=== PATIENT | female | born 1980 | race Caucasian/White ===

== ENCOUNTER → 2021-07-24 16:31 | Outpatient (CLI) | payer BC, SELFPAY | PROVIDERS: Visit Provider Nurse Practitioner | DX: U07.1 COVID-19 (principal) | CPT/HCPCS: C9803; U0003; U0005 ==

== ENCOUNTER 2023-11-20 18:00 | Outpatient (CLI) | payer BC, SELFPAY ==
[2023-11-20 12:51] LABS: Microscopic, Urine URINE MICROSCOPIC (MICROSCOPIC)
[2023-11-20 13:07] LABS: Basophils % 0.6 % (0.1-2.0); Eosinophils # 0.1 K/mm3 (0.0-0.4); Eosinophils % 1.4 % (0.1-12.0); Hematocrit 46.4 % (37.0-47.0); Lymphocytes # 1.4 K/mm3 (0.7-4.5); Lymphocytes % 29.2 % (10-50); Mean Corpuscular HGB Conc 32.3 g/dL (31.8-35.4); Mean Corpuscular Hemoglobin 32.7 pg (27.0-31.2); Mean Corpuscular Volume 101.2 fl (81-99); Mean Platelet Volume 8.1 fl (7.4-10.4); Monocytes # 0.3 K/mm3 (0.1-1.0); Monocytes % 6.2 % (1.7-9.3); Neutrophils # 2.9 K/mm3 (1.8-7.8); Neutrophils % 62.5 % (37.0-80.0); Platelet Count 242 K/mm3 (142-424); Red Blood Count 4.58 M/mm3 (4.20-5.40); Red Cell Distribution Width 13.1 % (11.5-17.5); White Blood Count 4.7 K/mm3 (4.8-10.8)
[2023-11-20 14:13] LABS: Free T4 (Free Thyroxine) 1.25 ng/dl (0.78-2.19)
[2023-11-20 14:14] LABS: 25-OH Vitamin D, Total 55.8 ng/mL (30-100)
[2023-11-20 14:37] LABS: Hemoglobin A1C 4.9 % (4.0-6.0)
[2023-11-20 14:51] LABS: Alanine Aminotransferase 33 U/L (12-78); Albumin Level 4.2 g/dl (3.5-5.0); Albumin/Globulin Ratio 1.4 (1.1-1.8); Alkaline Phosphatase 58 U/L (38-126); Anion Gap 12.6 mEq/L (5-15); Aspartate Amino Transferase 34 U/L (14-36); Bilirubin,Total 0.5 mg/dl (0.2-1.3); Blood Urea Nitrogen 16 mg/dl (7-17); Calcium 9.3 mg/dl (8.4-10.2); Carbon Dioxide 29 mmol/L (22.0-30.0); Chloride 102 mmol/L (98-107); Chol/HDL Ratio 2.6 (1-3.5); Cholesterol 201 mg/dl (140-200); Estimated Glomerular Filt Rate 79 ml/min (>60); GFR (African American) 95 ML/MIN (>60); Globulin 3.1 g/dL (1.3-3.2); Glucose 84 mg/dl (74-100); HDL Cholesterol 77 mg/dl (40-60); Potassium 4.6 mmoL/L (3.5-5.1); Sodium 139 mmol/L (136-145); Total Protein,Serum 7.3 g/dl (6.3-8.2); Triglycerides 57 mg/dl (30-150); VLDL Cholesterol 11 mg/dL (0-40)
[2023-11-20 15:02] LABS: Direct LDL Cholesterol 100.37 mg/dL (100-129)
[2023-11-20 15:15] LABS: Appearance,Urine CLEAR (Clear); Bilirubin,Urine Negative (Negative); Blood, Urine TRACE-I (Negative); Color,Urine YELLOW (Yellow); Glucose,Urine (UA) Negative (Negative); Ketones,Urine Negative (Negative); Leukocyte Esterase,Urine Negative (Negative); Nitrate,Urine Negative (Negative); Protein,Urine Negative (Negative); Urobilinogen,Urine 0.2 EU/dl (0.2)
[2023-11-20 15:22] LABS: Thyroid Stimulating Hormone 1.48 uIU/mL (0.465-4.68)
[2023-11-20 15:41] LABS: Vitamin B12 470 pg/mL (239-931)
[2023-11-20 16:11] LABS: Iron 131 ug/dL (37-170)
[2023-11-20 16:18] LABS: Squamous Epithelial Cell,Urine Occasional #/hpf (0-5); WBC,Urine Occasional #/hpf (0-3)
[2023-11-20 16:19] LABS: Bacteria,Urine Trace /lpf
[2023-11-20 16:20] LABS: Total Iron Binding Capacity 277 ug/dL (265-497)
[2023-11-21 10:33] LABS: HCV Ab Non Reactive (Non Reactive)
[2023-11-21 12:04] LABS: Rapid Plasma Reagin Ab Titer Non Reactive titer (NonRea<1:1)
[2023-11-25 00:12] LABS: Neisseria gonorrhoeae, NAA Negative (Negative)
== END 2023-11-20 23:59 | disposition home or self-care (01) ==
LOC: LAB.DROPOF 11-21 07:26
PROVIDERS: PCP Nurse Practitioner Family; Visit Provider Nurse Practitioner Family
DX: Z11.3 Encounter for screening for infections with a predominantly sexual mode of transmission (principal); Z11.59 Encounter for screening for other viral diseases; Z13.1 Encounter for screening for diabetes mellitus; R53.83 Other fatigue; Z13.220 Encounter for screening for lipoid disorders; Z68.23 Body mass index [BMI] 23.0-23.9, adult
CPT/HCPCS: 80050; 80053; 80061; 81001; 82306; 82607; 82728; 83036; 83540; 83550; 84439; 84443; 85025; 86593; 87086; 87491; 87591

== ENCOUNTER 2024-03-30 07:42 | Outpatient (CLI) | payer BC, SELFPAY ==
--- NOTE | 2024-03-30 07:42 | US_ITS ---
FINAL REPORT CLINICAL HISTORY: Colicky right upper quadrant pain COMPARISON: None FINDINGS: Sonographic images of the right upper quadrant were obtained. The pancreas is partially obscured.The liver has an unremarkable appearance.The gallbladder appears normal without evidence of gallstones.There is no evidence of biliary ductal dilatation.The common duct measures 4mm. Limited images of the right kidney are unremarkable. IMPRESSION: Unremarkable ultrasound of the right upper quadrant. Reviewed, Interpreted and Dictated by Walt Leal MD Transcribed by Sandy Gatica Authenticated and [facility]
== END 2024-03-30 23:59 | disposition home or self-care (01) ==
PROVIDERS: PCP Nurse Practitioner Family; Visit Provider Nurse Practitioner Family
DX: R10.11 Right upper quadrant pain (principal)
CPT/HCPCS: 76705

== ENCOUNTER 2024-04-14 10:10 | Outpatient (CLI) | payer BC, SELFPAY ==
--- NOTE | 2024-04-14 10:10 | NM_ITS ---
FINAL REPORT CLINICAL HISTORY: RUQ PAIN, ABD DISTENTION 10:50AM 4.91 MCI TC CHOLETEC 1.2 MCG CCK NO PAIN WITH CCK COMPARISON: None FINDINGS: Sequential anterior projection images of the abdomen were obtained after the intravenous injection of 4.91 mCi technetium 99m Choletec. There is normal uptake of radiotracer by the liver. The bile ducts and gallbladder are visualized by 5 minutes. Bowel activity is noted by 20 minutes. After 1 hour, 1.2 ?g of CCK was injected intravenously for calculation of gallbladder ejection fraction. The gallbladder ejection fraction is 59%, which is within normal limits. IMPRESSION: No evidence of cystic duct or bile duct obstruction. Normal gallbladder ejection fraction of 59%. Reviewed, Interpreted and Dictated by Kishore Steel III, MD Transcribed by Nataly Valadez Authenticated and . [facility]
[2024-04-14] MEDS: SODIUM CHLORIDE 0.9% 10ML SYR (RAD ONLY) 10 ML IV (10:50)
[2024-04-14] MEDS: ISOTOPE CHOLETECH;1 DOSE (UP TO 15 MCI) IV (12:01)
[2024-04-14] MEDS: SINCALIDE 1.2 MCG in 0.9 % SODIUM CHLORIDE 50 ML 100 MCG IV (12:01)
== END 2024-04-14 23:59 | disposition home or self-care (01) ==
PROVIDERS: PCP Nurse Practitioner Family; Visit Provider Nurse Practitioner Family
DX: R10.11 Right upper quadrant pain (principal); R14.0 Abdominal distension (gaseous)
CPT/HCPCS: 78227; A9537; J2805